=== PATIENT | female | born 1975 | race Asian ===

== ENCOUNTER 2017-02-19 15:35 | Emergency (ER) | payer OTHER ==
[~2017-02-19] VITALS: Ht 165.1 cm; Wt 54.5 kg
[~2017-02-19 15:35] MED LIST: LEVO500 PO; METR500 PO
[2017-02-19 15:49] VITALS: BP 120/82
[2017-02-19 16:07] LABS: BASOPHILS % (AUTO) 0.4 % (0.0-2.0); EOSINOPHILS % (AUTO) 0.8 % (1.0-6.0); HEMATOCRIT 38.9 % (36-46); HEMOGLOBIN 12.9 g/dL (12.0-16.0); LYMPHOCYTES # (AUTO) 1.7 K/uL (1.0-4.8); LYMPHOCYTES % (AUTO) 18.1 % (22.0-44.0); MEAN CORPUSCULAR HGB CONC 33.2 G/dL (31.0-37.0); MEAN CORPUSCULAR VOLUME 81 fL (80-100); MONOCYTES # (AUTO) 0.8 K/uL (0.1-1.0); MONOCYTES % (AUTO) 8.5 % (2.0-9.0); NEUTROPHILS # (AUTO) 6.6 K/uL (1.8-7.7); NEUTROPHILS % (AUTO) 72.2 % (40.0-70.0); PLATELET COUNT (AUTO) 271 K/uL (150-450); RED CELL DISTRIBUTION WIDTH 13.2 % (11.5-14.5); WHITE BLOOD COUNT (AUTO) 9.2 K/uL (4.5-11.0)
[2017-02-19 16:15] LABS: ANION GAP 10 mmol/L (8-16); CALCIUM, TOTAL 8.7 mg/dL (8.8-10.5); CARBON DIOXIDE 25 mmol/L (22-29); CHLORIDE 105 mmol/L (98-107); CREATININE 0.76 mg/dL (0.60-1.30); GLOMERULAR FILTR. RATE CALC > 60 mL/min (>60); POTASSIUM 3.8 mmol/L (3.5-5.1); SODIUM SERUM 140 mmol/L (136-145); UREA NITROGEN, BLOOD 12 mg/dL (7-18)
[2017-02-19 16:21] LABS: ALANINE AMINOTRANSFERASE 17 U/L (12-78); ALBUMIN 4.2 g/dL (3.4-5.0); AMYLASE 74 U/L (25-115); ASPARTATE AMINOTRANSFERASE 17 U/L (15-37); BILIRUBIN,TOTAL 0.6 mg/dL (0.1-1.0); TOTAL PROTEIN, SERUM 8.3 g/dL (6.4-8.2)
[2017-02-19 18:39] LABS: APPEARANCE,URINE HAZY (CLEAR)
[2017-02-19 18:40] LABS: GLUCOSE, URINE (UA) NEGATIVE (NEGATIVE); OCCULT BLOOD,URINE NEGATIVE (NEGATIVE); PROTEIN,URINE TRACE (NEGATIVE)
[2017-02-19 18:41] LABS: ADD UA MICROSCOPIC YES; KETONES,URINE NEGATIVE (NEGATIVE); LEUKOCYTE ESTERASE ,URINE TRACE (NEGATIVE); RBC,URINE 0-2 /HPF (0-2); SQUAMOUS EPITHELIAL CELL,UR Many /LPF (None Seen); WBC,URINE 0-2 /HPF (0-5)
== END 2017-02-19 18:16 | disposition left against medical advice (07) ==
LOC: EMS 15:41
DX: R10.9 Unspecified abdominal pain (principal); Z53.21 Procedure and treatment not carried out due to patient leaving prior to being seen by health care provider

== ENCOUNTER 2017-04-15 07:42 | Emergency (ER) | payer MEDICAID, OTHER ==
[~2017-04-15] VITALS: Ht 162.6 cm; Wt 54.5 kg
[2017-04-15 08:26] LABS: ANION GAP 9 mmol/L (8-16); CALCIUM, TOTAL 8.9 mg/dL (8.8-10.5); CARBON DIOXIDE 29 mmol/L (22-29); CHLORIDE 102 mmol/L (98-107); CREATININE 0.76 mg/dL (0.60-1.30); GLOMERULAR FILTR. RATE CALC > 60 mL/min (>60); GLUCOSE,RANDOM 96 mg/dL (70-110); POTASSIUM 3.6 mmol/L (3.5-5.1); SODIUM SERUM 140 mmol/L (136-145); UREA NITROGEN, BLOOD 9 mg/dL (7-18)
[2017-04-15] MEDS ORDERED: IOVERSOL 350 MG/ML 100 ML VIAL ONE (08:39)
[2017-04-15 12:07] VITALS: BP 128/76
== END 2017-04-15 13:10 | disposition home or self-care (01) ==
LOC: EMS 07:43
DX: J02.9 Acute pharyngitis, unspecified (principal); M54.2 Cervicalgia; Z85.41 Personal history of malignant neoplasm of cervix uteri
CPT/HCPCS: 36415; 70491; 80048; 84703; 99285; Q9967

== ENCOUNTER 2022-12-10 10:40 | Emergency (ER) | payer MEDICAID, OTHER ==
[~2022-12-10] VITALS: Ht 162.6 cm; Wt 62.7 kg
[2022-12-10] MEDS ORDERED: HYDR25TA2 PO (10:51)
[2022-12-10] MEDS ORDERED: AMLO2.5T29 PO (10:51)
[2022-12-10] MEDS ORDERED: LORA10TA7 PO (10:51)
[2022-12-10] MEDS ORDERED: METO-558 PO (10:51)
[2022-12-10] MEDS ORDERED: HYDR12.54 PO (13:10)
[2022-12-10] MEDS ORDERED: METO-408 PO (13:10)
[2022-12-10] MEDS ORDERED: AMLO10TA55 PO (13:10)
[2022-12-10] MEDS ORDERED: HYDROCODONE/ACETAMINOPHEN 5-325 MG TABLET PO ONE (13:15)
[2022-12-10 14:14] VITALS: BP 128/94; PULSE 90; RESP 18; TEMP 98
[2022-12-10] MEDS ORDERED: CYCL-448 PO (14:14)
[2022-12-10] MEDS ORDERED: IBUP-1492 PO (14:14)
== END 2022-12-10 14:33 | disposition home or self-care (01) ==
LOC: EMS 10:40
DX: S40.011A Contusion of right shoulder, initial encounter (principal); M25.512 Pain in left shoulder; Z98.51 Tubal ligation status; V98.8XXA Other specified transport accidents, initial encounter; Y93.89 Activity, other specified; Y92.89 Other specified places as the place of occurrence of the external cause; Y99.8 Other external cause status
CPT/HCPCS: 71045; 99284